=== PATIENT | female | born 2000 | race Caucasian/White ===

== ENCOUNTER 2024-08-29 16:50 | Emergency (ER) | payer SELFPAY ==
[2024-08-29 17:02] VITALS: BP 135/66
[2024-08-29 17:25] LABS: % Basophils 0.3 % (0-2); % Immature Granulocytes 0.2 % (0-0.5); % Lymphocytes 18.3 % (20.5-51.1); % Monocytes 3.8 % (1.7-9.3); % Neutrophils 76.4 % (42.2-75.2); Absolute Eosinophils 0.1 10^3/uL (0-0.7); Absolute Lymphocytes 1.7 10^3/uL (1.2-3.4); Absolute Monocytes 0.4 10^3/uL (0.1-0.6); Absolute Neutrophils 7.2 10^3/uL (1.4-6.5); Hematocrit 37.1 % (37.0-47.0); Hemoglobin 12.9 g/dL (12.0-16.0); Mean Corp Hgb Conc. 34.8 g/dL (33.0-37.0); Mean Corpuscular Hgb 30.6 pg (27.0-31.0); Mean Corpuscular Volume 88.1 fL (81.0-99.0); Nucleated Red Blood Cells % 0 %; Platelet Count 239 10^3/uL (130-400); Red Blood Cell Count 4.21 10^6/uL (4.20-5.40); Red Cell Dist. Width 11.7 % (11.5-14.5); White Blood Cell Count 9.5 10^3/uL (4.8-10.8)
[2024-08-29 17:41] LABS: HCG, Serum Qualitative Screen Negative
[2024-08-29 17:44] LABS: ALT (SGPT) 13 U/L (0-35); AST (SGOT) 24 U/L (14-36); Albumin 4.2 g/dl (3.5-5.0); Alkaline Phosphatase 35 U/L (38-126); Blood Urea Nitrogen 23 mg/dl (7-17); Calcium 9.2 mg/dl (8.4-10.2); Carbon Dioxide 24 mmol/L (22-30); Chloride 106 mmol/L (98-107); Glucose 110 mg/dl (70-99); Potassium 4.1 mmol/L (3.5-5.1); Sodium 139 mmol/L (135-145); Total Bilirubin 0.3 mg/dl (0.2-1.3); Total Protein 6.3 g/dl (6.3-8.2)
[2024-08-29 17:52] LABS: Troponin I < 0.012 ng/ml
[2024-08-29 17:55] LABS: eGFR 33.33
[2024-08-29 19:56] VITALS: BP 130/68
[2024-08-29 20:48] VITALS: BMI 26.0
[2024-08-29 20:49] VITALS: BP 122/66
[2024-08-29 21:00] VITALS: BP 120/69
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
[2024-08-29] MEDS: NSS 1000 IV (21:53)
[2024-08-29 22:00] VITALS: BP 109/63
[2024-08-29 22:07] LABS: Creatine Phosphokinase 194 U/L (30-135)
[2024-08-29 22:08] LABS: D-Dimer 0.42 ug/mlFEU (0.00-0.50)
[2024-08-29 22:17] LABS: Blood Urea Nitrogen 27 mg/dl (7-17); Calcium 9.4 mg/dl (8.4-10.2); Carbon Dioxide 27 mmol/L (22-30); Chloride 106 mmol/L (98-107); Estimated Creatinine Clearance 79 ml/min; Glucose 107 mg/dl (70-99); Potassium 4.1 mmol/L (3.5-5.1); Sodium 140 mmol/L (135-145); eGFR > 60.00
[2024-08-29 22:42] LABS: TSH Reflex To Free T4 2.68 uIU/ml (0.47-4.68)
[2024-08-29 23:00] VITALS: BP 98/56
== END 2024-08-29 23:40 | disposition home or self-care (01) ==
LOC: EMR 16:50
PROVIDERS: Emergency Medicine; EMERGENCY PHYSICIAN Emergency Medicine
DX: R00.2 Palpitations (principal); R07.9 Chest pain, unspecified; R06.02 Shortness of breath
CPT/HCPCS: 99285; 96360; 71046; 80048; 80053; 82550; 84443; 84484; 84703; 85025; 85379; 93005